=== PATIENT | female | born 1965 | race American Indian/Alaskan Native ===

== ENCOUNTER 2019-05-24 11:54 | Emergency (ER) | payer MEDICAID ==
[2019-05-24 12:54] VITALS: BP 131/92
--- NOTE | 2019-05-24 13:01 | Event Note ---
ED Screening Note ED Screening Note: states a few months ago she had a fall and broke a rib states she was another emergency room at that time states she has had continued back pain since the fall a couple months ago states that she also had pain down the right leg and swelling in the right leg states yesterday she was seen at [facility] and had a US of the RLE which was normal no signs of DVT, states that the doctor referred to a spine doctor she states she was prescribed something for pain by the [facility] doctor but states it was an over the counter medicine she denies any complete numbness, unilateral weakness, new fall or injury, bowel or bladder incontinence, saddle numbness
--- NOTE | 2019-05-24 13:13 | Emergency Department Report ---
Chief Complaint: Back Pain/Injury Stated Complaint: PAIN IN BACK Time Seen by Provider: 05/24/19 12:53 - HPI History of Present Illness: states a few months ago she had a fall and broke a rib but that has since improved states she was seen at another emergency room at that time states she has had continued back pain since the fall a couple months ago states that she also had pain down the right leg and swelling in the right leg states yesterday she was seen at [facility] and had a US of the RLE which was normal no signs of DVT, states that the doctor referred to a spine doctor she states she was prescribed something for pain by the [facility] doctor but states it was an over the counter medicine and did not fill it she denies any complete numbness, unilateral weakness, new fall or injury, bowel or bladder incontinence, saddle numbness Vitals are stable Non toxic appearing, no acute distress atraumatic, normocephalic normal appearance of the eyes, PERRL, EOMI, no periorbital edema or ecchymosis moist mucus membranes regular heart rate and rhythm, no gallops, no rubs, no murmurs breath sounds are clear bilaterally, no w/r/r no midline or paraspinal C-spine, T-spine or L-spine ttp, no step offs, no deformities A&O x4, no focal neuro deficit, 5/5 strength in the BUE/BLE, sensation intact skin is warm, dry, intact Patient has no red flag warning signs of back pain Patient has no midline tenderness, no step-offs, no neuro deficits Patient has had no acute traumatic injury She has no signs of symptoms of cauda equina or conus medullaris Patient has had this pain for a few months now Patient will be referred to orthopedic spine doctor Discussed supportive care and symptomatic treatment at home Discussed in detail with patient strict return precautions Patient is presenting with a nonmedical emergency at this time, medical screening examination performed and there is no threat to life or limb at this time - Exam Vital Signs: Vital Signs 05/24/19 11:59 Temperature 98.2 F Pulse Rate 67 Respiratory 18 Rate Blood Pressure 131/92 O2 Sat by Pulse 100 Oximetry MSE screening note: Focused history and physical exam performed. ED Disposition for MSE Clinical Impression: Low back pain Qualifiers: Chronicity: acute Back pain laterality: bilateral Sciatica presence: with sciatica Sciatica laterality: sciatica of right side Qualified Code(s): M54.41 - Lumbago with sciatica, right side Disposition: [facility] SCREENING EXAM-LEFT Is pt being admited?: No Does the pt Need Aspirin: No Condition: Stable Additional Instructions: may alternate tylenol or ibuprofen as needed for pain. may use ice pack, heating pad, rest, epsom salt bath. follow up with an orthopedic doctor. return to the emergency room for any new or worsening symptoms. [facility] Address: [address] [place] [address] Gaurang Medley MD Address: [address] [place] [address] [facility] Address: [facility] [place] [address] Referrals: [facility] [Provider Group] - 2-3 Days Time of Disposition: 13:10 Print Language: SERBIAN
== END 2019-05-24 16:38 | disposition left against medical advice (07) ==
LOC: ED 11:54
DX: M54.5 Low back pain (principal)
CPT/HCPCS: 99282

== ENCOUNTER 2020-08-10 18:05 | Emergency (ER) | payer MEDICAID ==
--- NOTE | 2020-08-10 20:55 | Event Note ---
ED Screening Note Date of service: 08/10/20 Time: 20:53 ED Screening Note: 54-year-old female patient with history of recurrent UTIs and pyelonephritis requiring hospitalization on prior occasions presents to the emergency department with complaints of urinary symptoms starting yesterday. Patient describes a sensation of needing to urinate followed by incomplete voiding. Patient states her current symptoms are consistent with prior UTIs. Last antibiotic therapy was approximately 2 months ago. Patient states she has a tendency to develop yeast infections when she takes antibiotics. General: Awake, appropriately interactive, no acute distress. Neck: Supple. Full range of motion intact. Cardiovascular: Normal peripheral perfusion. Pulmonary: No respiratory distress. Patient is speaking normally without use of accessory muscles. Skin: No apparent rashes or lesions. Neurological: No facial asymmetry. Speech is clear. Follows commands. Patient is alert and oriented. Musculoskeletal: Moves all four extremities spontaneously with normal range of motion. Psych: Cooperative. Appropriate mood and affect. I have greeted and performed a focused rapid initial assessment of this patient. A comprehensive ED assessment and evaluation of the patient, analysis of all test results, and completion of the medical decision-making process will be conducted by additional ED providers. This initial assessment/diagnostic orders/clinical plan/treatment(s) is/are subject to change based on patients health status, clinical progression and re-assessment. Further treatment and workup at subsequent clinical provider's discretion. Patient/guardian urged not to elope from the ED as their condition may be serious if not clinically assessed and managed.
[2020-08-10 21:56] LABS: Bilirubin,Urine NEG (Negative); Blood,Urine SM (Negative); Color,Urine Yellow (Yellow); Mucus,Urine FEW /HPF; Protein,Urine <15 mg/dL mg/dL (Negative)
--- NOTE | 2020-08-10 22:26 | Emergency Department Report ---
ED Female HPI - General Chief complaint: Urogenital-Female Stated complaint: PAINFUL URINATION Time Seen by Provider: 08/10/20 21:21 Source: patient Mode of arrival: Ambulatory Limitations: No Limitations - History of Present Illness Initial comments: Patient is a 54-year-old female presents emergency room with complaints of a UTI. She states that she began experiencing symptoms earlier today. She has associated urinary frequency, urinary urgency, small amounts of urine output, suprapubic abdominal discomfort. She denies any dysuria, back pain, nausea, vomiting, diarrhea, fever, abnormal vaginal discharge. She states that she has not been sexually active and 2 years. She states that she has a history of frequent UTIs but does not see a urologist. Past medical history of seizures and states that she takes Keppra. No allergies to medications. - Related Data Previous Rx's Medication Instructions Recorded Last Taken Type Fluconazole [Diflucan TAB] 150 mg PO QDAY 1 Days #3 tablet 08/10/20 Unknown Rx Phenazopyridine [Pyridium] 100 mg PO TID 2 Days #6 tab 08/10/20 Unknown Rx cephALEXin [Keflex] 500 mg PO BID 7 Days #14 cap 08/10/20 Unknown Rx Allergies Allergy/AdvReac Type Severity Reaction Status Date / Time No Known Allergies Allergy Unverified 05/24/19 11:56 ED Review of Systems ROS: Stated complaint: PAINFUL URINATION Other details as noted in HPI Comment: All other systems reviewed and negative ED Past Medical Hx - Past Medical History Hx Seizures: Yes - Surgical History Additional Surgical History: bladder surgery - Social History Smoking Status: Never Smoker Substance Use Type: None - Medications Home Medications: Home Medications Medication Instructions Recorded Confirmed Last Taken Type Fluconazole [Diflucan TAB] 150 mg PO QDAY 1 Days #3 tablet 08/10/20 Unknown Rx Phenazopyridine [Pyridium] 100 mg PO TID 2 Days #6 tab 08/10/20 Unknown Rx cephALEXin [Keflex] 500 mg PO BID 7 Days #14 cap 08/10/20 Unknown Rx ED Physical Exam - General Limitations: No Limitations General appearance: alert, in no apparent distress - Head Head exam: Present: atraumatic, normocephalic - Eye Eye exam: Present: normal appearance - ENT ENT exam: Present: mucous membranes moist - Respiratory Respiratory exam: Present: normal lung sounds bilaterally. Absent: respiratory distress, wheezes, rales, rhonchi, stridor, chest wall tenderness, accessory muscle use, decreased breath sounds, prolonged expiratory - Cardiovascular Cardiovascular Exam: Present: regular rate, normal rhythm, normal heart sounds. Absent: systolic murmur, rubs, gallop - GI/Abdominal GI/Abdominal exam: Present: soft, normal bowel sounds. Absent: distended, tenderness, guarding, rebound, rigid - Back Exam Back exam: Absent: CVA tenderness (R), CVA tenderness (L) - Neurological Exam Neurological exam: Present: alert, oriented X3 - Psychiatric Psychiatric exam: Present: normal affect, normal mood - Skin Skin exam: Present: warm, dry, intact ED Course Vital Signs 08/10/20 08/10/20 08/10/20 20:51 22:39 22:43 Temperature 98.0 F 98.3 F Pulse Rate 60 64 77 Respiratory 18 14 17 Rate Blood Pressure 180/97 138/103 [Right] O2 Sat by Pulse 100 98 99 Oximetry ED Medical Decision Making - Lab Data Labs 08/10/20 20:59 Urine Color Yellow Urine Turbidity Clear Urine pH 5.0 Ur Specific [place]born 1.027 Urine Protein <15 mg/dl Urine Glucose (UA) Neg Urine Ketones Neg Urine Blood Sm Urine Nitrite Neg Urine Bilirubin Neg Urine Urobilinogen 2.0 Ur Leukocyte Esterase Mod Urine WBC (Auto) 31.0 H Urine RBC (Auto) 5.0 U Epithel Cells (Auto) 3.0 Urine Mucus Few Vital Signs 08/10/20 08/10/20 08/10/20 20:51 22:39 22:43 Temperature 98.0 F 98.3 F Pulse Rate 60 64 77 Respiratory 18 14 17 Rate Blood Pressure 180/97 138/103 [Right] O2 Sat by Pulse 100 98 99 Oximetry - Medical Decision Making Patient is a 54-year-old female presents emergency room with complaints of a UTI. She states that she began experiencing symptoms earlier today. She has associated urinary frequency, urinary urgency, small amounts of urine output, suprapubic abdominal discomfort. She denies any dysuria, back pain, nausea, vomiting, diarrhea, fever, abnormal vaginal discharge. She states that she has not been sexually active and 2 years. She states that she has a history of frequent UTIs but does not see a urologist. Past medical history of seizures and states that she takes Keppra. No allergies to medications. Initial vitals and elevated blood pressure which improved upon repeat. No normality on physical examination as documented in chart. UA shows evidence of UTI. Patient given prescription for Keflex and Pyridium. Patient states that she frequently gets yeast infections when taking antibiotics. Patient given prescription for fluconazole. Advised patient Please take medication as prescribed. Increase your water intake. Follow-up with your primary care doctor. Follow-up with a urologist. Please have your urine retested as an outpatient for clearance of bacteria. Return to emergency room for new or worsening symptoms. Critical care attestation.: If time is entered above; I have spent that time in minutes in the direct care of this critically ill patient, excluding procedure time. ED Disposition Clinical Impression: UTI (urinary tract infection) Qualifiers: Urinary tract infection type: acute cystitis Hematuria presence: without hematuria Qualified Code(s): N30.00 - Acute cystitis without hematuria Disposition: TO HOME OR SELFCARE Is pt being admited?: No Does the pt Need Aspirin: No Condition: Stable Instructions: Urinary Tract Infection, Adult Additional Instructions: Please take medication as prescribed. Increase your water intake. Follow-up with your primary care doctor. Follow-up with a urologist. Please have your urine retested as an outpatient for clearance of bacteria. Return to emergency room for new or worsening symptoms. Prescriptions: Fluconazole [Diflucan TAB] 150 mg PO QDAY 1 Days #3 tablet cephALEXin [Keflex] 500 mg PO BID 7 Days #14 cap Phenazopyridine [Pyridium] 100 mg PO TID 2 Days #6 tab Referrals: RUPAL JONES MD [Primary Care Provider] - 2-3 Days ARIES JONES MD [Staff Physician] - 2-3 Days Time of Disposition: 22:24 Print Language: [place]
[2020-08-10 22:40] VITALS: BP 138/103
== END 2020-08-10 22:43 | disposition home or self-care (01) ==
LOC: ED 18:05
DX: N39.0 Urinary tract infection, site not specified (principal); R56.9 Unspecified convulsions; Z98.890 Other specified postprocedural states; Z79.899 Other long term (current) drug therapy
CPT/HCPCS: 81001; 87086